=== PATIENT | female | born 1980 | race Caucasian/White ===

== ENCOUNTER → 2018-03-07 | Day surgery (SDC) | payer BC ==
[~2018-03-07] MED LIST: AMLODIPINE BESY10 MG PO; AMLODIPINE BESYL5 MG PO; CEPHALEXIN500 MG PO; DEXAMETHASONE SOD PHOS INJ 4 MG/ML VIAL ONE; FENTANYL CITRATE/PF 100MCG/2 ML INJ ONE; FLOMAX0.4 MG PO; IOPAMIDOL 300MG/ML 50ML INFUS..BTL IV ONE; KETOROLAC TROME10 MG PO; LEVOFLOXACIN 500MG/D5W 100ML 100 ML IV ONE; LIDOCAINE HCL 2% LOCAL INJ 5 ML SDV VIAL INJ ONE; MIDAZOLAM HCL 2 MG/2 ML VIAL ONE; MONTELUKAST SOD10 MG PO; ONDANSETRON HCL INJ 2 MG/ML VIAL ONE; PROPOFOL IV EMULSION 10 MG/ML 20 ML VIAL ONE; SEVOFLURANE INHAL SOLN 250 ML PEN BTL ONE; SINGULAIR10 MG PO; SYMBICORT 16010.2 GM INH; TYLENOL WITH C1 EACH PO; VENTOLIN HFA18 GM INH; XYZAL5 MG PO; ZOFRAN ODT4 MG PO; ZYRTEC10 M1 PO
--- NOTE | 2018-03-07 14:28 | Operative Report ---
DATE OF PROCEDURE: March 07, 2018 PREOPERATIVE DIAGNOSES 1. Left renal calculus, mid-ilya, 7 x 7 to 8 x 8 mm. 2. Left lower third ureteral calculus, 3 mm. POSTOPERATIVE DIAGNOSES 1. Left renal calculus, mid-ilya, 7 x 7 to 8 x 8 mm. 2. Left lower third ureteral calculus, 3 mm. OPERATIONS 1. Left renal extracorporal shock wave lithotripsy. 2. Cystoscopy and insertion of left double J-urethral stent, 6-Guinean x 26 cm. ANESTHESIA: General. Ms. Landeros is a 38-year-old female who presented with acute onset of severe pain on the left side. Workup showed that she has a 3-mm calculus in the left lower third ureter, and also a 7 x 7 to an 8 x 8 mm calculus in the kidney at the level of the left mid-ilya. This patient was placed on the table in the supine position, and the left renal calculus was brought into position between F1 and F2 of the fluoroscopic monitor. The lithotripsy was then started starting at 2 kilovolts, and slowly and gradually increased to 7 kilovolts. Observation of the stone pulverization was done at 200 to 250 shocks intermittently. After 3000 shocks, it was felt that the stone has completely pulverized. This patient was then placed on the table in the lithotomy position, and was prepped and draped in a sterile manner after satisfactory anesthesia. A 0.38 flexible tip Glidewire was then passed through the working channel of the cystoscope through the left ureteral orifice bypassing the left lower third urethral calculus, and going all the way up to the renal pelvis. A 6-[place]inean x 26 cm double J-ureteral stent was then passed all the way up to the renal pelvis leaving the upper end of the stent in the renal pelvis and the lower end of the stent in the bladder. The bladder was drained. Cystoscope removed. The patient was taken to the recovery room in satisfactory condition. PLANS: For this lady is to be placed on Cipro 250 mg 1 twice a day. Ultracet tablet 1 every 6 hours p.r.n. Ditropan 5 mg one 3 times a day. She is to return to the office in 2 weeks. At that time, a KUB will be performed. If all the stones have passed, then will make arrangements to remove the stent. Job#: [id number] [place]
== END | disposition home or self-care (01) ==
LOC: OR 09:00
PROVIDERS: ATTEND Specialist
DX: N20.0 Calculus of kidney (principal); N20.1 Calculus of ureter; R00.1 Bradycardia, unspecified; J45.909 Unspecified asthma, uncomplicated; I10 Essential (primary) hypertension
CPT/HCPCS: 50590; 52332; 93005; C2617; J1100; J1956; J2001; J2250; J2405; Q9967

== ENCOUNTER → 2018-03-28 | Day surgery (SDC) | payer BC ==
--- NOTE | 2018-03-28 14:33 | Operative Report ---
DATE OF PROCEDURE: March 28, 2018 PREOPERATIVE DIAGNOSES 1. Left double-J urethral stent. 2. Postop extracorporeal shock wave lithotripsy with complete pulverization and passage of old stone fragments. POSTOPERATIVE DIAGNOSES 1. Left double-J urethral stent. 2. Extracorporeal shock wave lithotripsy with complete pulverization and passage of old stone fragments. OPERATION PERFORMED 1. Cystourethroscopy and stent removal. 2. Left retrograde pyelogram. ANESTHETIC: General. DETAILS OF PROCEDURE: Ms. Landeros is a 38-year-old female who presented initially with acute onset of severe pain. This was on the left side. She underwent stent placement ESWL. She presented at this time for stent removal since her stones have completely pulverized and passed. This patient was placed on the table in the lithotomy position and was prepped and draped in a sterile manner after satisfactory anesthesia. A #23-Vincentian cystoscope was used and cystourethroscopy was performed and the tail end of the stent was protruding from the left ureteral orifice which is normal. Under direct vision and fluoroscopic control, the tail end of the stent was grasped and completely removed without difficulty. Left retrograde pyelogram was then performed using a #8 ball tip urethral catheter inserted in the left ureteral orifice and 5 mL of contrast material was injected. The left retrograde performed was normal. The bladder was drained, cystoscope removed and patient taken to the recovery room in satisfactory condition. The bladder was drained, cystoscope removed. Plans for this lady is to return to our office in about one month. Job#: [id number] [id number]
== END | disposition home or self-care (01) ==
LOC: OR 10:00
PROVIDERS: ATTEND Specialist
DX: Z46.6 Encounter for fitting and adjustment of urinary device (principal); Z87.442 Personal history of urinary calculi; J45.909 Unspecified asthma, uncomplicated; I10 Essential (primary) hypertension
CPT/HCPCS: 52005; 74420; 88300; C1758; J1100; J1956; J2001; J2250; J2405; Q9967